=== PATIENT | female | born 1935 | race Caucasian/White ===

== ENCOUNTER → 2016-03-07 | Outpatient (CLI) | payer OTHER, MEDICARE ==
[~2016-03-07] VITALS: Ht 172.7 cm; Wt 95.3 kg
[~2016-03-07] MED LIST: ADVIL PO; ADVIL200 M3 PO; ALEVE220 MG PO; AMBIEN 5 MG TABL5 M1 PO; ANUSOL-HC25 MG RECTAL; ATIVAN0.5 MG PO; ATIVAN1 MG PO; BUTRANS1 EAC1 TD; CELEBREX 200 M200 M1 PO; CELEBREX 200 M200 MG PO; CITRACAL + BON1 EACH PO; CITRATE OF MAG296 ML PO; CLINDAMYCIN; COLACE100 MG PO; COZAAR100 MG PO; CYMBALTA30 MG PO; CYMBALTA60 MG PO; DEXILANT60 MG PO; DOLOPHINE HCL10 MG PO; DULCOLAX STOOL100 MG PO; ELIQUIS5 MG PO; ENDOCET 5-3251 EACH PO; ENOXAPARIN120 MG/0.1 SUBQ; EXELON1 EAC1 TD; FISH OIL 1,0001 EAC5 PO; FLEET ENEMA118 ML RC; FLEXERIL PO; GABAPENTIN 100100 MG PO; GLUCOSAMINE HC500 MG; GLUCOSAMINE PO; GLUCOSAMINE-CH1 EA37 PO; HYDROCODON-ACE1 EAC5 PO; HYDROCODON-ACE1 EACH PO; HYDROCODONE-AP1 EAC6 PO; HYOSCYAMINE0.125 MG PO; IRON159 MG PO; JANTOVEN10 MG PO; JANTOVEN5 MG PO; KLOR-CON 1010 MEQ PO; LASIX 20 MG TAB20 MG PO; LIDODERM 5%1 PATCH TOP; LYRICA 75 MG CA75 MG PO; MAALOX ADVANCE355 M1 PO; MELATONIN3 MG PO; METHADONE HCL 110 M1 PO; METHADONE HCL5 MG PO; MIRALAX255 GM PO; MOVANTIK25 MG PO; MS CONTIN15 MG PO; NAMENDA 10 MG T10 MG PO; NEURONTIN 300300 M1 PO; NEURONTIN600 MG PO; NEXIUM 40 MG CA40 M1 PO; NEXIUM40 MG PO; NORCO 5-325 TA1 EACH PO; OLANZAPINE5 MG PO; ONDANSETRON HCL4 M2 PO; OXYCODONE-ACET1 EACH PO; OXYCONTIN15 MG PO; PAMELOR10 MG PO; PANTOPRAZOLE SO40 M1 PO; PRINIVIL20 MG PO; PROTONIX 20 MG20 MG PO; PROTONIX40 M1 PO; REMERON30 MG PO; RESTORIL15 MG PO; RESTORIL30 MG PO; ROXICODONE5 M2 PO; SEROQUEL 50 MG50 MG PO; STRESS B-COMPL1 EACH PO; TEGRETOL200 MG PO; THERA TAB PO; TIZANIDINE HCL 22 M1 PO; TOPAMAX 25 MG T25 M1 PO; TOPROL XL25 MG PO; TRAZODONE HCL50 MG PO; TUMS PO; TYLENOL325 MG PO; ULTRAM 50MG TAB50 MG PO; UNICOMPLEX M TA1 TA1 PO; VENLAFAXIN75 MG/1 T2 PO; VENLAFAXINE HCL75 M2 PO; VITAMIN C500 M1 PO; VITAMIN D 5050000 I1 PO; ZANTAC 150MG T150 M1 PO
--- NOTE | ~2016-03-07 | HPC ---
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 She has been stable on methadone 5 mg in morning, 10 at night and hydrocodone 5/325 t.i.d. with an occasional tablet at bedtime. She is living in a residential memory unit. She is seen in the company of her who is supportive. She has ongoing cognitive defects. She is complaining of pain in the right side of her body, though physical examination is absolutely unremarkable. She appears to have fairly robust strength in upper and lower extremities that is symmetric. BMI is 33.1 kilograms per meter squared. Vital signs are stable as noted on the EMR. She appears alert and oriented, though again she is a very poor historian and significant cognitive defects are noted. Appears to have no problems with daytime somnolence or constipation, though at one point she was admitted to the hospital within the past three weeks for constipation. In general, she has done quite well. Curious as her medical record does note she is using MiraLax every morning. I talked with her about this issue. I have elected to start the patient on Colace at night. If, however, she has loose stools, I will enable the facility to discontinue that agent. ASSESSMENT: 1. Cervical spondylosis. 2. Chronic headaches. 3. Neuropathic pain. 4. Thalamic syndrome requiring complex medication management. RECOMMENDATIONS: Renew methadone 5 mg in the morning, 10 at night; hydrocodone 5/325 three times a day with a fourth tablet offered at bedtime. Continue MiraLax in the morning, Colace at night. Follow up in 3 months for reevaluation. <ELECTRONICALLY SIGNED> By: Denzel Gonzalez DO 03/11/16 0811 [id number] [id number] Denzel Gonzalez DO /nt
[2016-03-07 13:48] VITALS: BP 123/66
== END ==
LOC: PAIN 07:09
DX: M47.812 Spondylosis without myelopathy or radiculopathy, cervical region (principal); G89.0 Central pain syndrome; Z79.899 Other long term (current) drug therapy

== ENCOUNTER → 2016-06-02 | Outpatient (CLI) | payer OTHER, MEDICARE ==
[~2016-06-02] VITALS: Ht 172.7 cm; Wt 101.3 kg
[~2016-06-02] MED LIST changes: +MIRALAX17 GM PO; +PROCTOSOL-HC28.35 GM RC
--- NOTE | ~2016-06-02 | HPC ---
[facility] [address] [address] PAIN MANAGEMENT CONSULTATION Name: ZENIA HOWARD Miroslava Room #: REG [facility] Gabi.#: [id number] Admission: 06/02/16 Attend Phys: Denzel Gonzalez DO Discharge: Date of : 36 Report #: [id number] THIS REPORT FOR: //name// CC: Carina Gonzalez SUBJECTIVE: The patient is a 80-year-old female long treated for thalamic pain, neuropathic pain requiring complex medication management. Last seen in pain clinic on 03/07/2016. Continued on methadone 5 mg in the morning and 10 at night and hydrocodone 5/325 to be offered 4 times a day. The patient returns to pain clinic today with her . We had a prolonged visit today. Greater than 50% of the 25+ minute visit was spent counseling the patient. The [facility] to a specific memory unit inpatient facility. I reviewed their medication records, and it does appear that she has dutifully been given her hydrocodone 5/325 on schedule, 8 a.m., noon, 4:00 p.m. and 8 p.m. Despite this, the patient is adamant that she is not getting the medication. She is getting methadone 5 mg in the morning and 10 at night. She does acknowledge this. She is getting gabapentin 600 mg 4 times a day. She has MiraLax offered as a p.r.n. medication but it looks like she has not used it very often. She is complaining of ongoing pain in the right side of her body, neck, arm, shoulder, torso and leg. PHYSICAL EXAMINATION: Unchanged. NEUROPSYCHIATRIC: Affect is flat. Again, very poor historian, but aided by her . GENERAL: A 80-year-old female, BMI is 34 kilograms per meter squared. VITAL SIGNS: Blood pressure is 141/66, pulse 83, respirations 18. EXTREMITIES: She rises from the chair using the armrest. Gait is tandem. Subjective pain, arm and leg, though strength is symmetric. We reviewed the fact that opiate medications are being used to provide analgesia adequate to support activities of daily living, not attempting to achieve a specific pain score on the 0-10 Visual Analog Scale. The current opiate medications are providing sufficient analgesia to allow the patient to participate in activities of daily living. The patient is not exhibiting any aberrant behavior suggestive of drug diversion. The patient is not having any adverse reactions to medications. The patient is not suffering from daytime somnolence or mental acuity changes. The patient is managing opiate-induced constipation with appropriate mfkn-ayz-vwudcsl agents and dietary considerations. The patient was counseled on concern for caution with operating a motor vehicle while using opiate medications. A physical exam was performed and the patient[place] [address] PAIN MANAGEMENT CONSULTATION Name: ZENIA HOWARD Room #: REG ANGEL Schmidt#: [id number] Admission: 06/02/16 Attend Phys: Denzel Gonzalez DO Discharge: Date of : 36 Report #: [id number] All patients with back pain were advised against the bed rest greater than 4 days and were advised to return to normal activities. Pain score assessment was noted and the treatment plan was reviewed with the patient. All current medications, both prescribed and OTC were reviewed and reconciled on the electronic medical record. Tobacco screening was accomplished and smoking cessation was advised when indicated. BMI was noted and diet/exercise modification was recommended for all patients following outside normal parameters. I reviewed with the patient today their responsibilities to safeguard prescription medications, reviewed their responsibility to utilize medications only as prescribed by the physician. They are to seek and receive pain medications only from 1 physician group ( [facility]). They are to use 1 pharmacy and keep the clinic informed if they change pharmacies. Their responsibilities include making followup visits in a timely fashion and to avoid abrupt discontinuation of medication usage. Their responsibilities further include bringing their medications (bottles from the pharmacy with residual pills) to the visit for possible confirmation of pill counts and the patient understands it is their responsibility to submit to random drug screens to ensure both that the medications prescribed are present, and that no other controlled substances are present. All prescriptions provided today were generated electronically. ASSESSMENT: Neuropathic pain, thalamic pain secondary to cerebrovascular accident with right-sided body pain. RECOMMENDATIONS: I had a long discussion with Mr. Howard and the patient today. Ultimately, I would like to discontinue the hydrocodone, moderate dose and the patient is unaware of receiving it, so I do not think it is affording a good deal of relief. We will trial increasing methadone to 10 mg in the morning along with 10 mg at bedtime, and I will ask for MiraLax to be used on a more daily basis. Continue gabapentin 600 mg 4 times a day, unchanged. I have taken the liberty of ordering these medication changes. I will be happy to see her on an as-needed basis. <ELECTRONICALLY SIGNED> By: Denzel Gonzalez DO 06/03/16 0925 1515 [id number] Denzel Gonzalez DO /nt
[2016-06-02 13:27] VITALS: BP 141/66
== END | disposition home or self-care (01) ==
LOC: PAIN 07:52
DX: G89.0 Central pain syndrome (principal); I69.351 Hemiplegia and hemiparesis following cerebral infarction affecting right dominant side

== ENCOUNTER → 2016-07-01 | Outpatient (CLI) | payer OTHER, MEDICARE ==
[~2016-07-01] VITALS: Ht 175.3 cm; Wt 99.3 kg
--- NOTE | ~2016-07-01 | HPC ---
[facility] [place] [address] [place] [address] PAIN MANAGEMENT CONSULTATION Name: ZENIA TIM Room #: REG [facility] Brayan#: [id number] Admission: 07/01/16 Attend Phys: Denzel Gonzalez DO Discharge: Date of : 36 Report #: [id number] THIS REPORT FOR: //name// CC: Carina Gonzalez SUBJECTIVE: The patient is a 80-year-old female well known to the pain clinic, typically treated for neuropathic pain, thalamic pain affecting the right side of her body requiring complex medication management. The patient is now residing in a [facility] unit in a [facility] facility. Otherwise, she is doing adequate with pain. Last visit was 06/02/2016. We increased methadone to 10 mg b.i.d. Continue gabapentin unchanged 600 mg 4 times a day. The patient notes pain remains problematic in the right side of her body, but she states she "ignores it" most of the time. She notes pain does interfere with function to some degree, but thinks medications may be helpful. She is doing well with opiate-induced constipation using MiraLax. The patient does report a subjective pain score of 9 on a 0-10 visual analog scale. Again, pain along the whole right side of her body. PHYSICAL EXAMINATION: Unchanged. GENERAL: A 80-year-old female, BMI is 32.3 kilograms per meter squared. Affect is little bit flat. She is seen in the company of her who is supportive. VITAL SIGNS: Stable. EXTREMITIES: Upper and lower extremity strength is symmetric. Does have a little high light touch allodynia and hyperpathia in the right arm and leg. The tactile 2-point discrimination is symmetric. We reviewed the fact that opiate medications are being used to provide analgesia adequate to support activities of daily living, not attempting to achieve a specific pain score on the 0-10 Visual Analog Scale. The current opiate medications are providing sufficient analgesia to allow the patient to participate in activities of daily living. The patient is not exhibiting any aberrant behavior suggestive of drug diversion. The patient is not having any adverse reactions to medications. The patient is not suffering from daytime somnolence or mental acuity changes. The patient is managing opiate-induced constipation with appropriate qxpf-dvs-tsauvgz agents and dietary considerations. The patient was counseled on concern for caution with operating a motor vehicle while using opiate medications. A physical exam was performed and the patient's functional status was evaluated. All patients with back pain were advised against the bed rest greater than 4 days and were advised to return to normal activities. Pain score assessment was noted and the treatment plan was reviewed with the patient. All current [address] [address] PAIN MANAGEMENT CONSULTATION Name: MEETAZENIA Room #: [facility] [id number] Admission: 07/01/16 Attend Phys: Denzel Gonzalez DO Discharge: Date of : 36 Report #: [id number] medications, both prescribed and OTC were reviewed and reconciled on the electronic medical record. Tobacco screening was accomplished and smoking cessation was advised when indicated. BMI was noted and diet/exercise modification was recommended for all patients following outside normal parameters. I reviewed with the patient today their responsibilities to safeguard prescription medications, reviewed their responsibility to utilize medications only as prescribed by the physician. They are to seek and receive pain medications only from 1 physician group ( [facility]). They are to use 1 pharmacy and keep the clinic informed if they change pharmacies. Their responsibilities include making followup visits in a timely fashion and to avoid abrupt discontinuation of medication usage. Their responsibilities further include bringing their medications (bottles from the pharmacy with residual pills) to the visit for possible confirmation of pill counts and the patient understands it is their responsibility to submit to random drug screens to ensure both that the medications prescribed are present, and that no other controlled substances are present. All prescriptions provided today were generated electronically. ASSESSMENT: Thalamic pain secondary to cerebrovascular accident with neuropathic pain, right arm and leg, requiring complex medication management. RECOMMENDATION: 1. Continue methadone 10 mg b.i.d. 2. We will resume hydrocodone 5/325 up to 3 a day for breakthrough pain. 3. Continue gabapentin unchanged. I have taken the liberty of writing for 3 months of current medications. Follow up at that time, earlier if needed. By: [id number] Denzel Gonzalez DO /nt
[2016-07-01 10:30] VITALS: BP 118/60
== END | disposition home or self-care (01) ==
LOC: PAIN 06-30 06:50
DX: G89.0 Central pain syndrome (principal); I63.9 Cerebral infarction, unspecified; M79.601 Pain in right arm; M79.661 Pain in right lower leg; F11.20 Opioid dependence, uncomplicated

== ENCOUNTER → 2016-09-19 | Outpatient (CLI) | payer OTHER, MEDICARE ==
[~2016-09-19] VITALS: Ht 175.3 cm; Wt 105.6 kg
--- NOTE | ~2016-09-19 | HPC ---
[facility] [place] [address] PAIN MANAGEMENT CONSULTATION Name: SAM HOWARDAubrey Colorado [facility] [id number] Admission: 09/19/16 Attend Phys: Denzel Gonzalez DO Discharge: Date of : 36 Report #: [id number] THIS REPORT FOR: //name// CC: Carina Gonzalez The patient is an 81-year-old female well known to pain clinic, typically treated for neuropathic pain. She has a thalamic syndrome, status post CVA with right-sided pain including arm, torso and leg. Medication management is complicated by comorbidities including dementia. Last seen in pain clinic on 07/01/2016. Continued on methadone 10 mg b.i.d., hydrocodone 5/325 t.i.d. and gabapentin 600 mg 4 times a day. She returns to the pain clinic today in the company of her who is supportive. She does live in a [facility]. Today, the patient actually looks better than she has in time. She is alert, oriented. She is engaged. She states her pain is 4 on VAS. She states pain is exacerbated with standing and walking, but she states "I am very active." She walks daily. She plays again daily. When I asked further about this she states that they will play ball toss and ring toss games. She again is physically active, doing well. Weight is up a little bit, BMI is 34.4 kilograms per meter squared, historically she has been 29-31 kilograms per meter squared. Again, appears pretty alert and oriented today, though again she does have lapses in her memory. Vital signs stable as noted in the EMR Rises from chair using armrest. Gait is tandem. Modest weakness on the right side. Long discussion with the patient and Ms. Howard today. Ultimately, we have elected to simply continue baseline medications unchanged, strongly encouraged her to continue with her physical activity and social interactions. See her back in 3 months for reevaluation. By: [id number] Denzel Gonzalez, /nt
[2016-09-19 13:36] VITALS: BP 127/54
== END ==
LOC: PAIN 07:23
DX: M79.2 Neuralgia and neuritis, unspecified (principal); F03.90 Unspecified dementia, unspecified severity, without behavioral disturbance, psychotic disturbance, mood disturbance, and anxiety; Z88.0 Allergy status to penicillin; Z88.2 Allergy status to sulfonamides; Z88.8 Allergy status to other drugs, medicaments and biological substances; Z79.899 Other long term (current) drug therapy; Z79.891 Long term (current) use of opiate analgesic

== ENCOUNTER → 2017-04-10 | Outpatient (CLI) | payer OTHER, MEDICARE ==
[~2017-04-10] VITALS: Ht 175.3 cm; Wt 102.2 kg
[~2017-04-10] MED LIST changes: +ANUCORT-HC25 MG RECTAL; +EYE DROP15 ML OPHTHALMIC; +VITAMINC500 PO
--- NOTE | ~2017-04-10 | HPC ---
[facility] [address] [address] PAIN MANAGEMENT CONSULTATION Name: ZENIA HOWARD [facility] [id number] Admission: 04/10/17 Attend Phys: Denzel Gonzalez DO Discharge: Date of : 36 Report #: [id number] THIS REPORT FOR: //name// CC: Carina Gonzalez DATE OF SERVICE: 04/10/2017 The patient is an 81-year-old female, typically treated for right hemisoma pain status post cerebrovascular accident with pain in the right side of her face, right arm, right torso and right leg. The patient suffers with Alzheimer's as comorbidity. Last seen in pain clinic 12/11/2016. The patient was continued on baseline medication including methadone 10 mg b.i.d., hydrocodone 5/325 t.i.d. to be given "proactively," in other words offered to the patient on a t.i.d. basis. She does tend to take it t.i.d. as well. Gabapentin 600 mg 4 times a day and MiraLax for opiate-induced constipation. She returns to pain clinic today, seen in company of her as usual. He provides a good deal of the medical history. He does note that she has been more and more sedate lately. We had a prolonged visit today. The patient was seen for approximately 25 minutes from 11:36 to 12:05. I have reviewed records from [facility] where the patient is in the memory care unit. It appears that she has been taking trazodone 25 mg at noon and 4:00 p.m. I think this may be significant in contributing to her hypersomnolence. Today, we have elected to try and shift that medication back to dinner time (1800 hours) and bedtime (2200 hours). We will continue other medications unchanged. If she continues to be somnolent with this, we will try and wean back a little bit on her hydrocodone. PHYSICAL EXAMINATION: Otherwise, shows a pleasant 81-year-old female. She is hypersomnolent today, though she arouses and is pleasant. Again, very poor historian due to concurrent Alzheimer's. BMI is 33.3 kilograms per meter squared. Vital signs are stable as noted in the EMR. She has not fallen in the last 3 months. She does use a walker for balance. She is on Eliquis. Her medication list was reconciled today. She has an opiate consent to treat contract in place. ASSESSMENT: Chronic neuropathic pain, right-sided requiring complex medication management. Comorbidities are Alzheimer's and agitation and now hypersomnolence. [address] [address] PAIN MANAGEMENT CONSULTATION Name: MEETAZENIA Room #: REG Ben Schmidt#: [id number] Admission: 04/10/17 Attend Phys: Denzel Gonzalez DO Discharge: Date of : 36 Report #: [id number] RECOMMENDATION: Medication changes as noted above. Follow up in 3 months for reevaluation. Discharged in good stable condition after prolonged visit was spent with the patient and her today. Greater than 50% of the 25+ minute visit was spent counseling both patient and her . Again, concern for increasing dementia and hypersomnolence. Medication management complicated by prior somewhat aggressive behavior by Mrs. Howard, hence trying to walk a delicate balance of providing pain relief (with stress that we are working to help improve function, not "0/10" pain on VAS), avoid daytime sedation and avoid agitation. <ELECTRONICALLY SIGNED> By: Denzel Gonzalez DO 04/12/17 0820 1623 [id number] Denzel Gonzalez DO /nt
[2017-04-10 11:25] VITALS: BP 122/73
== END ==
LOC: PAIN 07:25
DX: M79.2 Neuralgia and neuritis, unspecified (principal); M79.601 Pain in right arm; G30.9 Alzheimer's disease, unspecified; Z79.899 Other long term (current) drug therapy

== ENCOUNTER → 2017-07-10 | Outpatient (CLI) | payer OTHER, MEDICARE ==
[~2017-07-10] VITALS: Ht 175.3 cm; Wt 102.8 kg
[~2017-07-10] MED LIST changes: -ANUCORT-HC25 MG RECTAL; -EYE DROP15 ML OPHTHALMIC; -VITAMINC500 PO
--- NOTE | ~2017-07-10 | HPC ---
[facility] [place] [address] PAIN MANAGEMENT CONSULTATION Name: ZENIA TIM [facility] [id number] Admission: 07/10/17 Attend Phys: Denzel Gonzalez DO Discharge: Date of : 36 Report #: [id number] THIS REPORT FOR: //name// CC: Carina Gonzalez The patient is a pleasant, yet unfortunate 81-year-old female who suffers from significant Alzheimer's. [facility] She has a right-sided body pain, status post CVA in the distant past. She has been remarkably stable on methadone 10 mg b.i.d., hydrocodone 5/325 three times a day and gabapentin 400 mg 4 times a day. She uses MiraLax for opiate-induced constipation. Last visit was 04/10/2017. She is always seen in the company of her who is very supportive. She returns to the pain clinic today. She is doing reasonably well. Again her memory is quite poor. She does not recall falling, but her tells me she fell last week. She was attempting to sit in a chair. She appears quite surprised when her reminded her about this. She states that she did not have any sequelae from this fall, her agrees that she may have had some headaches, but no somatic concerns for broken bone. PHYSICAL EXAMINATION: Shows a fairly robust 81-year-old female, BMI is 33.4 kilograms per meter squared. Vital signs are generally stable as noted on the EMR. She appears alert. Again moderately oriented with a very poor short-term memory. She does rise from the chair. She uses a walker for balance. She has modestly ataxic gait. Diffuse tenderness across the low back and again subjective pain in the entire right side of her body. We reviewed the fact that opiate medications are being used to provide analgesia adequate to support activities of daily living, not attempting to achieve a specific pain score on the 0-10 Visual Analog Scale. The current opiate medications are providing sufficient analgesia to allow the patient to participate in activities of daily living. The patient is not exhibiting any aberrant behavior suggestive of drug diversion. The patient is not having any adverse reactions to medications. The patient is not suffering from daytime somnolence or mental acuity changes. The patient is managing opiate-induced constipation with appropriate qntc-drb-ejhsckc agents and dietary considerations. The patient was counseled on concern for caution with operating a motor vehicle while using opiate medications. A physical exam was performed and the patient's functional status was evaluated. All patients with back pain were advised against the bed rest greater than 4 days and were advised to return to normal activities. Pain score assessment was noted and the treatment plan was reviewed with the patient. All current medications, both prescribed and OTC [place] [address] PAIN MANAGEMENT CONSULTATION Name: ZENIA TIM Miroslava Room #: REG [facility]GEL Schmidt#: [id number] Admission: 07/10/17 Attend Phys: Denzel Gonzalez DO Discharge: Date of : 36 Report #: [id number] electronic medical record. Tobacco screening was accomplished and smoking cessation was advised when indicated. BMI was noted and diet/exercise modification was recommended for all patients following outside normal parameters. I reviewed with the patient today their responsibilities to safeguard prescription medications, reviewed their responsibility to utilize medications only as prescribed by the physician. They are to seek and receive pain medications only from 1 physician group ( [facility]). They are to use 1 pharmacy and keep the clinic informed if they change pharmacies. Their responsibilities include making followup visits in a timely fashion and to avoid abrupt discontinuation of medication usage. Their responsibilities further include bringing their medications (bottles from the pharmacy with residual pills) to the visit for possible confirmation of pill counts and the patient understands it is their responsibility to submit to random drug screens to ensure both that the medications prescribed are present, and that no other controlled substances are present. All prescriptions provided today were generated electronically. ASSESSMENT: Right hemisoma pain, status post cerebrovascular accident, neuropathic pain requiring complex medication management in a patient whose management is complicated by coexisting significant Alzheimer's dementia. RECOMMENDATION: A long discussion with the patient and her today. I informed them that I am leaving the practice area. I suggest that since she has been stable on these medications for quite some time that perhaps her production generalist physician Carina Mendez MD at [facility] may be able to take over managing all of her medications. Again, I believe Dr. Mendez writes for all of her other medications. If for some reason, Dr. Mendez is uncomfortable writing for these medications, we will see if there are any other pain physicians on her panel and/or see if she can find an appointment on schedule with one of the physicians at [facility] Thank you for allowing me to participate in the patient's care. I have taken the liberty of writing for 3 months of her current medication. Again she has been remarkably stable on these agents, doing very well, having no problems with daytime somnolence, mental acuity changes or constipation. <ELECTRONICALLY SIGNED> By: Denzel Gonzalez DO 07/12/17 0740 1523 2320 Denzel Gonzalez DO /kelsey
[2017-07-10 13:15] VITALS: BP 120/71
== END ==
LOC: PAIN 06:59
DX: M79.2 Neuralgia and neuritis, unspecified (principal); Z79.899 Other long term (current) drug therapy; Z86.73 Personal history of transient ischemic attack (TIA), and cerebral infarction without residual deficits

== ENCOUNTER → 2017-10-02 | Outpatient (CLI) | payer OTHER, MEDICARE ==
[~2017-10-02] VITALS: Ht 175.3 cm; Wt 98.0 kg
[~2017-10-02] MED LIST changes: +ANUCORT-HC25 MG RECTAL; +EYE DROP15 ML OPHTHALMIC; +VITAMINC500 PO
--- NOTE | ~2017-10-02 | HPC ---
[facility] [address] [place] [address] PAIN MANAGEMENT CONSULTATION Name: ZENIA HOWARD Room #: REG [facility] Carlitos.#: [id number] Admission: 10/02/17 Attend Phys: Andrea Rao MD Discharge: Date of : 37 Report #: [id number] THIS REPORT FOR: //name// CC: Evangelista Carina Rao DATE OF SERVICE: 10/02/2017 REASON FOR VISIT: Followup visit for chronic pain and palliative care. HISTORY OF PRESENT ILLNESS: The patient is in the clinic today with her . She suffers from Alzheimer's disease and her watches over her carefully. She has now been 2 years in a memory unit. I cared for her in 2011 in and saw her last around that time. Dr. Denzel Gonzalez was providing medication for her and saw her last in July. Dr. Gonzalez has since moved to [place] and I was asked to see her. We initiated our friendship today and my relationship with her is a physician. I did speak somewhat directly to her who is able to answer questions more directly and this upset her. She made clear that I spoke directly to her and I agreed and apologized. She is, however, suffering from Alzheimer's type dementia and many of the questions I asked were answered by Amilcar, her . When we spoke directly about pain, she reported that her pain was well controlled. She could not give me any pain locations and I spoke with Amilcar about her medication and his assessment of how effective it was in providing relief. She reported that when she was not given her medication on schedule, there was a noticeable difference in her affect and also her complaints of pain. She has been on methadone 10 mg twice a day and hydrocodone 3 times a day given mostly by schedule. With these medications, she rarely complains of her usual right-sided pain following her stroke in the distant past. I was asked also by Mr. Howard if I would provide for her 2 medications, which both he and the nurses in the clinic found helpful in providing for sleep and also some anxiety. She has been on olanzapine 5 mg once a day and trazodone 50 mg b.i.d. for at least 2 years according to the medical information that was provided to me today from [facility]. It is a hardship for her to go to her multiple physicians. I have agreed to provide those medications for her as part of our overall management of her pain suffering and as a palliative measure. She does not appear to have any side effects nor any reported by her . PHYSICAL EXAMINATION GENERAL: Today, she was very alert but clearly had difficulty with questions requiring both short short-term and long-term memory. She was a bit agitated [facility] [address] [place] [address] PAIN MANAGEMENT CONSULTATION Name: ZENIA HOWARD Room #: REG CLBen Schmidt#: [id number] Admission: 10/02/17 Attend Phys: Andrea Rao MD Discharge: Date of : 37 Report #: [id number] because I did not speak directly to her. VITAL SIGNS: Her blood pressure was 109/44, heart rate 87, respirations 16 and O2 sat 98 on room air. She is 5 feet, 9 inches and 216 pounds with a BMI of 31.9. MUSCULOSKELETAL: She moves from a sitting to standing position and ambulates with a walker but does not appear to be a fall risk. It should be noted that she is on Eliquis. She has a history of a CVA. She is on no tenderness across her low back. No pain in her neck or shoulders. Pain intensity today is an unreliable 02/15. IMPRESSION: 1. Right katie soma pain status post cerebrovascular accident. 2. Alzheimer's type dementia. 3. Management of high risk medications including medications for palliation of anxiety and insomnia. PLAN: All medications were renewed for 3 months and I included a renewal of her olanzapine and trazodone. I will be happy to defer these medications to her primary care physician, Carina Mendez. Followup visit scheduled in our clinic in 3 months for her opioids. All medications are carefully controlled by the facility. By: [id number] Andrea Rao MD /nt
[2017-10-02 14:53] VITALS: BP 109/44
== END ==
LOC: PAIN 07:03
DX: G30.9 Alzheimer's disease, unspecified (principal); F41.9 Anxiety disorder, unspecified; G47.00 Insomnia, unspecified; G89.29 Other chronic pain; Z79.899 Other long term (current) drug therapy

== ENCOUNTER → 2018-01-22 | Outpatient (CLI) | payer OTHER, MEDICARE ==
[~2018-01-22] VITALS: Ht 175.3 cm; Wt 98.9 kg
[~2018-01-22] MED LIST changes: +COLACE 100 MG100 MG PO; +VITAMIN B-12500 MCG PO
--- NOTE | ~2018-01-22 | HPC ---
[facility] [address] [place] [address] PAIN MANAGEMENT CONSULTATION Name: ZENIA TIM Room #: REG [facility].#: [id number] Admission: 01/22/18 Attend Phys: Jaja Dominguez Discharge: Date of : 37 Report #: [id number] THIS REPORT FOR: //name// CC: Jaja Dominguez Carina Mendez DATE OF SERVICE: 01/22/2018 CHIEF COMPLAINT: Chronic right hip pain and palliative care. HISTORY OF PRESENT ILLNESS: The patient returns today to the pain clinic with her . She suffers from Alzheimer disease and lives in a memory unit. She today tells me that her right hip is hurting and she tells me that she has some pain in her lower extremities from her ankles going upward. Otherwise she tells me she is not really hurting much. She does walk some and stand and is able to get out of the chair. Her is here today present and tells me that she has been decreasing in her mental capacity, slightly more than in last visits. He tells me that she takes her pain medicine of hydrocodone 3 times a day and methadone twice a day. The patient denies constipation to me. tells me that she does take MiraLax every day. She has a suppository if she becomes constipated that they are able to give her also and she takes Colace every night. ALLERGIES: EXTENSIVE LIST MANGOES, PENICILLIN, CEPHALOSPORIN, SULFA, FENTANYL, AMBIEN, ARICEPT, LEVOFLOXACIN AND LIDOCAINE. CURRENT MEDICATIONS: Colace twice a day, vitamin C daily, vitamin B12 daily, hydrocodone 5/325 three times a day, trazodone 50 mg twice a day, olanzapine 5 mg at bedtime, methadone 10 mg twice a day, ascorbic acid daily, MiraLax daily, Zofran as needed, Cymbalta 30 mg daily, Tums daily, gabapentin 600 mg 4 times a day, potassium daily, vitamin B12 once a week orally, multivitamin daily, Prinivil 20 mg daily, Protonix 40 mg twice a day, Lasix 20 mg daily, Eliquis 5 mg twice a day. PQRS: The patient has a history of osteoarthritis in her hips and back. Denies rheumatoid arthritis. Height 5 feet 9 inches, weight 218 pounds, BMI is 32. Vital signs: Blood pressure 131/61, pulse is 82, respirations 16, oxygen sat is 94. Pain score unable to rate, tells me not much pain today. Fall risk, does not have dizziness. Does use a walker at all times and has not fallen in the last 3 months. Blood thinner is Eliquis. She does not have a history of hypertension, but she does have a history of a CVA. Opioid therapy is greater than 6 weeks and opioid signed contract is on the chart. Risk assessment tool the patient is unable to fill out the form and the functional assessment is too hard for the patient to fill out. She is confused by the number. Recreational drug use, denies. Does not smoke and does not drink alcohol. We checked prescription monitoring system and the patient is filling appropriate via [address] [address] PAIN MANAGEMENT CONSULTATION Name: ZENIA TIM Room #: KSENIA Schmidt#: [id number] Admission: 01/22/18 Attend Phys: Jaja Dominguez Discharge: Date of : 37 Report #: [id number] Chopper for her medications. They are being administered by the [facility] where she lives. PHYSICAL EXAMINATION: GENERAL: The patient has a very flat affect today, falls asleep when not being talking to or at least closes her eyes. The patient tells me she is not sleeping though. She is a well-developed, well-nourished female that appears her stated age. MUSCULOSKELETAL: She moves from sitting to standing position slowly. She ambulates with a walker, but does not appear to have an unsteady gait. Complains of tenderness in her right hip and lower extremities. She has 3+ edema bilaterally in her lower extremities. ASSESSMENT: 1. Right hematoma pain status post cerebrovascular accident. 2. Alzheimer's type dementia. 3. Management of high-risk medications including medications for palliation of anxiety and insomnia. We reviewed the fact that opiate medications are being used to provide analgesia adequate to support activities of daily living, not attempting to achieve a specific pain score on the 0-10 Visual Analog Scale. The current opiate medications are providing sufficient analgesia to allow the patient to participate in activities of daily living. The patient is not exhibiting any aberrant behavior suggestive of drug diversion. The patient is not having any adverse reactions to medications. The patient is not suffering from daytime somnolence or mental acuity changes. The patient is managing opiate-induced constipation with appropriate yxru-tjr-bejdkog agents and dietary considerations. The patient was counseled on concern for caution with operating a motor vehicle while using opiate medications. A physical exam was performed and the patient's functional status was evaluated. All patients with back pain were advised against the bed rest greater than 4 days and were advised to return to normal activities. Pain score assessment was noted and the treatment plan was reviewed with the patient. All current medications, both prescribed and OTC were reviewed and reconciled on the electronic medical record. Tobacco screening was accomplished and smoking cessation was advised when indicated. BMI was noted and diet/exercise modification was recommended for all patients following outside normal parameters. I reviewed with the patient today their responsibilities to safeguard prescription medications, reviewed their responsibility to utilize medications only as prescribed by the physician. They are to seek and receive pain medications only from 1 physician group ( [facility]). They are to use 1 pharmacy and keep the clinic informed if they change pharmacies. Their [facility] [address] [place] [address] PAIN MANAGEMENT CONSULTATION Name: ZENIA TIM Room #: REG ANGEL Schmidt#: [id number] Admission: 01/22/18 Attend Phys: Jaja Dominguez Discharge: Date of : 37 Report #: [id number] responsibilities include making followup visits in a timely fashion and to avoid abrupt discontinuation of medication usage. Their responsibilities further include bringing their medications (bottles from the pharmacy with residual pills) to the visit for possible confirmation of pill counts and the patient understands it is their responsibility to submit to random drug screens to ensure both that the medications prescribed are present, and that no other controlled substances are present. All prescriptions provided today were generated electronically. PLAN: 1. The patient's treatment options were discussed with the patient and spouse today. I renewed her methadone 10 mg twice a day and scripts for today, 4-week and 8-week; hydrocodone 5/325, #90 was also refilled for today, 4-week and 8-week. The patient takes the hydrocodone on schedule and may refuse if she does not need them. It looks per the last record that the patient has been taking this total of 3 every day. 2. The patient will be seen in 3-month time period for refill of her medications. The patient and spouse are agreeable with this plan of care. Care given under the direction and collaboration today of Dr. Andrea Rao. <ELECTRONICALLY SIGNED> By: Jaja Dominguez 01/23/18 0714 [id number] Jaja Dominguez /nt
[2018-01-22 12:33] VITALS: BP 131/61
== END ==
LOC: PAIN 01:55
DX: Z51.5 Encounter for palliative care (principal); M25.551 Pain in right hip; G89.29 Other chronic pain; G30.1 Alzheimer's disease with late onset; F41.9 Anxiety disorder, unspecified; G47.00 Insomnia, unspecified; Z86.73 Personal history of transient ischemic attack (TIA), and cerebral infarction without residual deficits; Z79.899 Other long term (current) drug therapy

== ENCOUNTER → 2018-04-23 | Outpatient (CLI) | payer OTHER, MEDICARE ==
[~2018-04-23] VITALS: Ht 175.3 cm; Wt 102.5 kg
[2018-04-23 11:13] VITALS: BP 119/57
--- NOTE | 2018-04-23 11:27 | NUR ---
Pain Clinic Assessment: 1. History of Osteoarthritis: NO History of Rheumatoid Arthritis: NO 2. Height: 5 ft. 9 in. 175.3 cm. Weight: 226.0 lb. oz. 102.513 kg. Patient's BMI: 33.4 3. Vital Signs: BP: 119/57 Pulse: 80 Resp: 14 Temp: 02 Sat: 94 ECG Mon: 4. Pain Intensity: Unable to Rate 5. Fall Risk: Dizziness: N Needs help standing or walking: Y Fallen in the last 3 months: Y Fall risk comments: 6. Patient on Blood Thinner: ELIQUIS 7. History of Hypertension: N 8. Opioid Therapy greater than 6 weeks: Y Opiate Contract Signed: 9. Risk Assessment Tool Provided: 10. Functional Assessment Tool: PT. CONFUSED 11. Recreational Drug Use: Never Drug Type: Tobacco Use: Never Smoker Tobacco Type: Amount or Packs/day: How Many Years: Alcohol Use: No Frequency: Quant:
--- NOTE | 2018-04-24 08:45 | HPC ---
[facility] [address] [address] PAIN MANAGEMENT CONSULTATION Name: SAM TIMAubrey Colorado Room #: REG [facility]..#: [id number] Admission: 04/23/18 ������������������ Attend Phys: Jaja Dominguez Discharge: ������������������ Date of : 37 Report #: [id number] THIS REPORT FOR: //name// CC: Jaja Dominguez Carina Foys DATE OF SERVICE: 04/23/2018 CHIEF COMPLAINT: Chronic right hip pain and palliative care. HISTORY OF PRESENT ILLNESS: The patient returns to the pain clinic today with her . She suffers from Alzheimer's disease and is deteriorating and lives in memory unit. Today for most of the visit, she has been sitting with her eyes closed, though at times she is appropriately answering questions from me. When she spoke with the nurse, her speech was mumbled and not making any sense. The patient's tells me that she has been slipping since we had seen her last and her memory decline has been decreasing quite rapidly. The patient has fallen in the past month and was in the hospital for a few days at the [facility]. She has been taking some Lasix for increasing edema in her lower extremities. She did not give us pain score today, but she does tell me that her legs hurt today. ALLERGIES: PENICILLIN, CEPHALOSPORINS, SULFA, FENTANYL, AMBIEN, ARICEPT, LEVOFLOXACIN AND LIDOCAINE. CURRENT MEDICATIONS: Ativan 0.5 mg q. 6 hours p.r.n., vitamin B12 daily, methadone 10 mg b.i.d., hydrocodone 5/325 t.i.d., Colace p.r.n., trazodone 50 mg at bedtime, olanzapine 5 mg at bedtime, eyedrops as needed, vitamin C 500 mg daily, MiraLax daily, Cymbalta 30 mg daily, Tums daily, gabapentin 600 mg 4 times a day, potassium 10 mEq every other day, vitamin D 50,000 units weekly, multivitamin daily, Prinivil 20 mg daily, Protonix 40 mg daily, Lasix 40 mg daily, Eliquis 5 mg b.i.d. PQRS: 1. The patient has a history of osteoarthritis in her hips and her back. Denies rheumatoid arthritis. 2. Height is 5 feet 9 inches, weight is 226, BMI is 33.4. 3. Vital signs 119/57, pulse is 80, respirations 14, oxygen sat is 94. 4. Does not rate pain score today. 5. Fall risk. Denies dizziness. Uses a walker and has fallen in the last 3 months. 6. The patient is on Eliquis and does not have a history of hypertension. 7. Opioid therapy is greater than 6 weeks; therefore, an opioid signed contract is on the chart. Unable to calculate a functional assessment score due to the patient's dementia. 8. Recreational drug use, she denies. She is not a smoker [place] [address] PAIN MANAGEMENT CONSULTATION Name: ZENIA TIM Miroslava Room #: REG ANGEL Schmidt#: [id number] Admission: 04/23/18 ������������������ Attend Phys: Jaja Dominguez Discharge: ������������������ Date of : 37 Report #: [id number] alcohol. PHYSICAL EXAMINATION: GENERAL: This patient has a very flat affect today, falling asleep during parts of our discussion. The patient tells me that she is having pain today, so she is alert, but unable to tell me where she is at today. She is a well-developed, well-nourished female. MUSCULOSKELETAL: The patient moves from sitting to standing very slowly and walks with an antalgic gait. She has 3+ edema in her lower extremities. Lower extremity strength judged to be 4/5 bilateral in all major muscle groups. ASSESSMENT: 1. Alzheimer's type dementia 2. Right hematoma pain, status post cerebrovascular accident. 3. Management of high-risk medications including palliation of anxiety and insomnia. We reviewed the fact that opiate medications are being used to provide analgesia adequate to support activities of daily living, not attempting to achieve a specific pain score on the 0-10 Visual Analog Scale. The current opiate medications are providing sufficient analgesia to allow the patient to participate in activities of daily living. The patient is not exhibiting any aberrant behavior suggestive of drug diversion. The patient is not having any adverse reactions to medications. The patient is not suffering from daytime somnolence or mental acuity changes. The patient is managing opiate-induced constipation with appropriate nanx-mii-cpceswo agents and dietary considerations. The patient was counseled on concern for caution with operating a motor vehicle while using opiate medications. A physical exam was performed and the patient's functional status was evaluated. All patients with back pain were advised against the bed rest greater than 4 days and were advised to return to normal activities. Pain score assessment was noted and the treatment plan was reviewed with the patient. All current medications, both prescribed and OTC were reviewed and reconciled on the electronic medical record. Tobacco screening was accomplished and smoking cessation was advised when indicated. BMI was noted and diet/exercise modification was recommended for all patients following outside normal parameters. I reviewed with the patient today their responsibilities to safeguard prescription medications, reviewed their responsibility to utilize medications only as prescribed by the physician. They are to seek and receive pain medications only from 1 physician group ( [facility]). They are to use 1 pharmacy and keep the clinic informed if they change pharmacies. Their responsibilities include making followup visits in a timely fashion and to avoid [facility] [address] [place] [address] PAIN MANAGEMENT CONSULTATION Name: ZENIA TIM Room #: REG [facility].#: [id number] Admission: 04/23/18 ������������������ Attend Phys: Jaja Dominguez Discharge: ������������������ Date of : 37 Report #: [id number] abrupt discontinuation of medication usage. Their responsibilities further include bringing their medications (bottles from the pharmacy with residual pills) to the visit for possible confirmation of pill counts and the patient understands it is their responsibility to submit to random drug screens to ensure both that the medications prescribed are present, and that no other controlled substances are present. All prescriptions provided today were generated electronically. PLAN: 1. We discussed treatment options with the patient today and family. The patient continues to take her medicine as prescribed on a schedule through the nursing staff. The patient is unable to verbalize numbers for pain score, but does tell me that she is in pain. Therefore, we will continue using methadone and hydrocodone for the patient's pain and palliative care. Scripts given for 3-month supply of both these medications. 2. No gabapentin or trazodone needed today. The patient has plenty of refills of this at this time. 3. Dr. Rao did visit with the patient briefly and reiterated with the family that we are using these to help treat the patient in a palliative way as well as in a chronic way for her right hip pain. 4. The patient will return in 3 months' time. We assisted her to the car. The patient was able to ambulate very slowly with help. She and her will follow up as needed within 3 months if not before. 5. The patient seen in collaboration and with Dr. Rao today. ��������������������������������������������� <ELECTRONICALLY SIGNED> ���������������������������������������� By: Jaja Dominguez ��������������������������������������������� 04/24/18 0845 1454 [id number] Jaja Dominguez /kelsey
== END ==
LOC: PAIN 07:03
DX: M25.551 Pain in right hip (principal); G30.1 Alzheimer's disease with late onset; F02.80 Dementia in other diseases classified elsewhere, unspecified severity, without behavioral disturbance, psychotic disturbance, mood disturbance, and anxiety; F41.9 Anxiety disorder, unspecified; G47.00 Insomnia, unspecified; Z79.899 Other long term (current) drug therapy; Z86.73 Personal history of transient ischemic attack (TIA), and cerebral infarction without residual deficits

== ENCOUNTER → 2018-07-16 | Outpatient (CLI) | payer OTHER, MEDICARE ==
[~2018-07-16] VITALS: Ht 175.3 cm; Wt 94.3 kg
[~2018-07-16] MED LIST changes: +DOXYCYCLINE 10100 MG PO; +NORCO 5-325 TA1 EAC1 PO; +PEG3350510 GM PO
[2018-07-16 10:16] VITALS: BP 112/60
--- NOTE | 2018-07-16 10:38 | NUR ---
Pain Clinic Assessment: 1. History of Osteoarthritis: NO History of Rheumatoid Arthritis: NO 2. Height: 5 ft. 9 in. 175.3 cm. Weight: 207.8 lb. oz. 94.258 kg. Patient's BMI: 30.7 3. Vital Signs: BP: 112/60 Pulse: 70 Resp: 14 Temp: 02 Sat: 98 ECG Mon: 4. Pain Intensity: Unable to Rate 5. Fall Risk: Dizziness: N Needs help standing or walking: Y Fallen in the last 3 months: N Fall risk comments: 6. Patient on Blood Thinner: ELIQUIS 7. History of Hypertension: N 8. Opioid Therapy greater than 6 weeks: Y Opiate Contract Signed: 9. Risk Assessment Tool Provided: 10. Functional Assessment Tool: PT. CONFUSED 11. Recreational Drug Use: Never Drug Type: Tobacco Use: Never Smoker Tobacco Type: Amount or Packs/day: How Many Years: Alcohol Use: No Frequency: Quant:
--- NOTE | 2018-07-17 14:37 | HPC ---
[facility] [address] [place] [address] PAIN MANAGEMENT CONSULTATION Name: SAM TIMAubrey [place] [facility] [id number] Admission: 07/16/18 ������������������ Attend Phys: Jaja Doimnguez Discharge: ������������������ Date of : 37 Report #: [id number] THIS REPORT FOR: //name// CC: Jaja Mendez DATE OF SERVICE: 07/16/2018 CHIEF COMPLAINT: Chronic right hip pain and palliative care. HISTORY OF PRESENT ILLNESS: The patient returns to the pain clinic today with her . She suffers from ongoing Alzheimer disease. It is progressively getting worse. Does live in an Alzheimer's unit. She was very confused per the nurse today. She is able to respond to me and does tell me that her hip hurts per her , the responses that she gave me were quite good for the patient. She must here voice quite well since she is answering me. Normally, she sits and just looks off into space with being very quiet. She is unable to rate her pain, but does tell me that it is her right hip that is hurting. She walked in with a walker today. The family member tells me that she is given her pain medicine of methadone twice a day and her hydrocodone 3 times a day around the clock. The patient's tells me that she does have urinary tract infection, being treated with antibiotics. She was very confused yesterday and we associate that from her ongoing infection. ALLERGIES: PENICILLIN, CEPHALOSPORINS, SULFA, FENTANYL, AMBIEN, ARICEPT, LEVOFLOXACIN AND LIDOCAINE. CURRENT LIST OF MEDICATIONS: MiraLax, doxycycline 100 mg b.i.d., hydrocodone 5/325 three times a day, methadone 10 mg twice a day, trazodone 50 mg at bedtime, Ativan 0.5 mg as needed, vitamin B12, Colace, vitamin C, Zofran as needed, Cymbalta 30 mg daily, Tums, gabapentin 600 mg 4 times a day, potassium 10 mEq a day, vitamin D, multivitamin, Prinivil 20 mg daily, Protonix 40 mg daily, Lasix 20 mg daily and Eliquis 5 mg b.i.d. PQRS: 1. She has a history of osteoarthritis of her hips and her back. Denies any rheumatoid arthritis. 2. Height is 5 feet 9 inches, weight is 207 and BMI is 30. 3. Vital signs: Blood signs 112/60, pulse is 70, respirations 14, oxygen sat is 98, pain score is unable to rate. 4. Fall risk. Does not have any dizziness. She does use a walker at all times and has not fallen in the last 3 months. 5. The patient is on Eliquis and does not take medicine for hypertension. 6. Opioid therapy is greater than 6 weeks; she [place] [address] PAIN MANAGEMENT CONSULTATION Name: ZENIA TIM Room #: [facility].#: [id number] Admission: 07/16/18 ������������������ Attend Phys: Jaja Dominguez Discharge: ������������������ Date of : 37 Report #: [id number] assessment or the opioid functional assessment. 7. Recreational drug use, she denies. She is not a smoker and does not drink alcohol. PHYSICAL EXAMINATION: GENERAL: The patient has a flat affect and is awake during most of our discussion. She is able to respond to me and tell me where her pain was located. She is very hard of hearing. She is a well-developed, well-nourished female. HEENT: Normocephalic, atraumatic. Extraocular eye muscles are intact, though she does not see well and is seeing things at times. Her hearing is significantly diminished. MUSCULOSKELETAL: The patient moves from sitting to standing very slowly using the arm rest. She walks with an antalgic gait, complains of right hip pain. She has lower extremity 2+ edema present today. Her lower extremity strength was judged to be 4/5 bilaterally in all major muscle groups. ASSESSMENT: 1. Alzheimer's type dementia. 2. Right hemisoma pain, status post cerebrovascular accident. 3. Right hip pain, osteoarthritis. 4. Management of high risk medications including palliative care for anxiety and insomnia as well as her chronic pain. We reviewed the fact that opiate medications are being used to provide analgesia adequate to support activities of daily living, not attempting to achieve a specific pain score on the 0-10 Visual Analog Scale. The current opiate medications are providing sufficient analgesia to allow the patient to participate in activities of daily living. The patient is not exhibiting any aberrant behavior suggestive of drug diversion. The patient is not having any adverse reactions to medications. The patient is not suffering from daytime somnolence or mental acuity changes. The patient is managing opiate-induced constipation with appropriate enlx-krq-iyuqllu agents and dietary considerations. The patient was counseled on concern for caution with operating a motor vehicle while using opiate medications. A physical exam was performed and the patient's functional status was evaluated. All patients with back pain were advised against the bed rest greater than 4 days and were advised to return to normal activities. Pain score assessment was noted and the treatment plan was reviewed with the patient. All current medications, both prescribed and OTC were reviewed and reconciled on the electronic medical record. Tobacco screening was accomplished and smoking cessation was advised when indicated. BMI was noted and diet/exercise modification was recommended for all patients following outside normal parameters. [facility] [address] [place] [address] PAIN MANAGEMENT CONSULTATION Name: ZENIA TIM Room #: [facility]#: [id number] Admission: 07/16/18 ������������������ Attend Phys: Jaja Dominguez Discharge: ������������������ Date of : 37 Report #: [id number] I reviewed with the patient today their responsibilities to safeguard prescription medications, reviewed their responsibility to utilize medications only as prescribed by the physician. They are to seek and receive pain medications only from 1 physician group ( [facility]). They are to use 1 pharmacy and keep the clinic informed if they change pharmacies. Their responsibilities include making followup visits in a timely fashion and to avoid abrupt discontinuation of medication usage. Their responsibilities further include bringing their medications (bottles from the pharmacy with residual pills) to the visit for possible confirmation of pill counts and the patient understands it is their responsibility to submit to random drug screens to ensure both that the medications prescribed are present, and that no other controlled substances are present. All prescriptions provided today were generated electronically. We did check the prescription monitoring system. The patient is filling appropriately for her medications. PLAN: 1. I discussed treatment options with the family today. The patient is able to walk in the halls and function on her current medications. She does require her methadone 10 mg twice a day and her hydrocodone 5/325 three times a day. Script was given for today, 4-week and 8-week release. 2. The patient does not need gabapentin at this time. She does take those normally 4 times a day. We will fax refill when it is due later this summer. 3. I did talk with his spouse. If it gets to the point that he is having difficulty bringing her in as her disease progresses, that we would allow her to get these filled through the doctor there. He does not believe there is a physician there that on staff that will write these medicines, but I told him that we will revisit this again if need be in the future as her disease progresses. 4. I discussed this patient with Dr. Rao and reviewed the chart for medication needs. He is available by phone if additional collaboration was needed today, but none needed. The patient will follow up in 3 months. ��������������������������������������������� <ELECTRONICALLY SIGNED> ���������������������������������������� By: Jaja Dominguez ��������������������������������������������� 07/17/18 [id number] Jaja Dominguez /nt
== END ==
LOC: PAIN 06:48
DX: M16.11 Unilateral primary osteoarthritis, right hip (principal); G89.29 Other chronic pain; G30.1 Alzheimer's disease with late onset; F02.80 Dementia in other diseases classified elsewhere, unspecified severity, without behavioral disturbance, psychotic disturbance, mood disturbance, and anxiety; F41.9 Anxiety disorder, unspecified; G47.00 Insomnia, unspecified; Z79.899 Other long term (current) drug therapy; Z86.73 Personal history of transient ischemic attack (TIA), and cerebral infarction without residual deficits